=== PATIENT | male | born 1975 | race Caucasian/White ===

== ENCOUNTER → 2017-08-01 | Outpatient (CLI) | payer OTHER ==
--- NOTE | 2017-08-01 11:29 | US ---
History: Left testicular lump Study: Scrotal ultrasound Comparison: None Findings: The left testicle measures 4 x 2 x 3 cm without focal mass demonstrated. The right testicle measures 4 x 2.3 x 3.4 cm without mass. There is a 6 mm right epididymal cyst. There is no hydrocele. There is symmetrical good color Doppler blood flow to each testicle. Impression: 1. Unremarkable left testicle 2. Right epididymal 6 mm cyst or spermatocele Reported By:
== END ==
LOC: RAD 10:08
PROVIDERS: ATTEND Internal Medicine
DX: N50.9 Disorder of male genital organs, unspecified (principal)
CPT/HCPCS: 76870